=== PATIENT | male | born 1955 | race Caucasian/White ===

== ENCOUNTER 2023-06-07 13:24 | Emergency (ER) | payer MEDICARE, OTHER ==
[2023-06-07] MEDS: Tetracaine HCl/PF 0.5% 4 ML Bottle EYERT ONE (14:01)
[2023-06-07] MEDS: Dexamethasone/Neomycin/Polymyxin B Ophth Susp 5 ML Bottle EYERT ONE (14:29)
== END 2023-06-07 14:45 | disposition home or self-care (01) ==
LOC: KA.ED 13:24
DX: H57.8A1 Foreign body sensation, right eye (principal); W45.8XXA Other foreign body or object entering through skin, initial encounter
CPT/HCPCS: 99283

== ENCOUNTER 2024-02-10 09:19 | Day surgery (SDC) | payer MEDICARE, OTHER ==
[2024-02-10] MEDS ORDERED: Propofol 200 MG/20 ML SDV IV ONE (09:20)
[2024-02-10] MEDS ORDERED: Midazolam 1 MG/ML 2 ML SDV ONE (09:29)
[2024-02-10] MEDS ORDERED: Propofol 200 MG/20 ML SDV ONE ×2 (09:29→10:41)
[2024-02-10] MEDS ORDERED: Sodium Chloride 0.9% 10 ML Syringe FLUSH PRN (09:30)
[2024-02-10] MEDS: Lactated Ringers 1,000 ML IV SCH (09:51)
== END 2024-02-10 12:40 | disposition home or self-care (01) ==
LOC: KA.SDS 09:19
PROVIDERS: ATTEND Family Medicine
DX: Z12.11 Encounter for screening for malignant neoplasm of colon (principal); D12.0 Benign neoplasm of cecum; K57.30 Diverticulosis of large intestine without perforation or abscess without bleeding
CPT/HCPCS: 00811; 45380; 45385; J2250; J2704; J7120; J3490